=== PATIENT | female | born 1955 | race American Indian/Alaskan Native ===

== ENCOUNTER 2018-07-02 10:07 | Inpatient (IN) | payer BC, OTHER ==
--- NOTE | 2018-07-02 11:37 | C.PDOC ---
History Of Present Illness 63 year old female with a history of uterine fibroids presents to the emergency department with complaints of intermittent vertigo x 3 days. Episodes occur approximately once daily unprovoked, last approximately 1-5 minutes and self- resolve with rest. Vertigo is described as "room spinning" with associated nausea and vomiting. Patient denies nausea/vomiting when not having these episodes. Associated left ear fullness. Patient states that she has had these symptoms in the past 3 years ago, when she was diagnosed with labrynthitis. She denies fevers, chills, syncope, headache, vision changes, chest pain, SOB, abdominal pain, N/V/D, ear pain, visual changes, weakness, numbness, paresthesias, or any other associated symptoms. Time Seen by Provider: 07/02/18 11:20 Chief Complaint (Nursing): Dizziness/Lightheaded History Per: Patient History/Exam Limitations: no limitations Onset/Duration Of Symptoms: Days (3) Current Symptoms Are (Timing): Still Present Seizure Or Post-ictal Symptoms: None Fall Associated With With Symptoms: No Past Medical History Reviewed: Historical Data, Nursing Documentation, Vital Signs Vital Signs: Last Vital Signs Temp 97.6 F 07/02/18 10:16 Pulse 46 L 07/02/18 10:16 Resp 18 07/02/18 10:16 BP 137/86 07/02/18 10:16 Pulse Ox 98 07/02/18 10:16 - Medical History PMH: No Chronic Diseases Surgical History: No Surg Hx Family History: States: No Known Family Hx - Social History Hx Alcohol Use: No Hx Substance Use: Yes (marijuana) - Immunization History Hx Tetanus Toxoid Vaccination: No Hx Influenza Vaccination: No Hx Pneumococcal Vaccination: No Review Of Systems Except As Marked, All Systems Reviewed And Found Negative. Constitutional: Negative for: Fever, Chills Eyes: Negative for: Vision Change ENT: Positive for: Other (left ear fullness). Negative for: Ear Pain, Ear Discharge, Nose Congestion, Throat Pain Cardiovascular: Negative for: Chest Pain, Palpitations, Light Headedness Respiratory: Negative for: Cough, Shortness of Breath Gastrointestinal: Positive for: Nausea, Vomiting. Negative for: Abdominal Pain, Diarrhea Genitourinary: Negative for: Dysuria, Frequency, Vaginal Discharge, Vaginal Bleeding, Pelvic Pain Musculoskeletal: Negative for: Neck Pain, Back Pain Skin: Negative for: Rash Neurological: Positive for: Dizziness. Negative for: Weakness, Numbness, Seizures, Altered Mental Status, Headache Physical Exam - Physical Exam Appears: Well, Non-toxic, No Acute Distress Skin: Normal Color, Warm, Dry Head: Atraumatic, Normacephalic Eye(s): bilateral: Normal Inspection, PERRL, EOMI Ear(s): Left: Other (decreased hearing, chronic), Right: Normal, Bilateral: TM Obscured By Wax Nose: Normal Oral Mucosa: Moist Neck: Normal, Normal ROM, Supple Chest: Symmetrical, No Tenderness Cardiovascular: Rhythm Regular, No Murmur Respiratory: Normal Breath Sounds, No Rales, No Rhonchi, No Wheezing Gastrointestinal/Abdominal: Normal Exam, Bowel Sounds (normoactive), Soft, No Tenderness, No Guarding, No Rebound Back: Normal Inspection Extremity: Normal ROM, No Tenderness Extremity: Bilateral: Atraumatic, No Pedal Edema, Normal Color And Temperature, Normal ROM Pulses: Left Radial: Normal, Right Radial: Normal Neurological/Psych: Oriented x3, Normal Speech, Normal Cognition, Normal Motor, Normal Sensation, Normal Reflexes ED Course And Treatment - Laboratory Results Result Diagrams: 07/02/18 11:57 07/02/18 11:57 ECG: Viewed By Nj ECG Rhythm: Sinus Bradycardia ECG Interpretation: Normal Interpretation Of ECG: Rate 43; Sinus Bradycardia; Normal Intervals; No STEMI or other signs of acute ischemia Rate From EC O2 Sat by Pulse Oximetry: 98 (RA) Pulse Ox Interpretation: Normal - CT Scan/US CT Head Other Rad Studies (CT/US): Read By Radiologist, Radiology Report Reviewed CT/US Interpretation: IMPRESSION: No acute intracranial pathology identified. CXR Other Rad Studies (CT/US): Read By Radiologist, Radiology Report Reviewed CT/US Interpretation: IMPRESSION: No focal consolidation. Medical Decision Making Medical Decision Making: Initial Plan: * CBC, CMP * UA, culture * Troponin * Coags * Head CT * EKG * CXR * Antivert * Zofran * IVF 1130 On initial evaluation, patient very well appearing in no acute distress. Denies any somatic complaints currently. Physical exam, including neurological exam normal. Labwork shows mild hypokalemia at 3.4, PTT 41, UA with blood and ketones, otherwise unremarkable Head CT negative for any acute pathology CXR shows acute disease Patient reports feeling better after medication, continues to report intermittent dizziness. Patient persistently bradycardic at 40-50, states she has no history of low HR. Will admit for continued evaluation secondary to symptomatic bradycardia. [address] Kendall, who accepts patient for inpatient telemetry admission with diagnosis of symptomatic bradycardia and vertigo. 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 - Scribe Statement The provider has reviewed the documentation as recorded by the Scribe (Volodymyr Zamudiovi) All medical record entries made by the Scribe were at my direction and personally dictated by me. I have reviewed the chart and agree that the record accurately reflects my personal performance of the history, physical exam, medical decision making, and the department course for this patient. I have also personally directed, reviewed, and agree with the discharge instructions and disposition.
[2018-07-02] MEDS ORDERED: Sodium Chloride 0.9% 1,000 ML IV ONE (11:40)
[2018-07-02] MEDS ORDERED: Sodium Chloride 0.9% 1,000 ML ONE (12:00)
[2018-07-02 12:02] LABS: BASO % 0.5 % (0.0-2.0); EOS % 0.4 % (0.0-4.0); HEMOGLOBIN 12.8 g/dL (11.0-16.0); LYMPH # 2.2 K/uL (1.0-4.3); LYMPH % 32.6 % (20.0-40.0); MEAN CORPUSCULAR HEMOGLOBIN 25.8 pg (27.0-31.0); MEAN PLATELET VOLUME 7.5 fL (7.2-11.7); MONO # 0.4 K/uL (0.0-0.8); MONO % 5.3 % (0.0-10.0); NEUT # 4.1 K/uL (1.8-7.0); NEUT % 61.2 % (50.0-75.0); NRBC % 0.1 % (0.0-2.0); RBC 4.98 Mil/uL (3.80-5.20); RED CELL DISTRIBUTION WIDTH 16.1 % (11.5-14.5); WHITE BLOOD COUNT 6.7 K/uL (4.8-10.8)
[2018-07-02 12:05] LABS: MEAN CELL VOLUME 80.6 fL (81.0-99.0)
[2018-07-02 12:08] LABS: SQUAMOUS EPITHIAL < 1 /hpf (0-5); URINE BILIRUBIN NEGATIVE (NEGATIVE); URINE BLOOD 1+ (NEGATIVE); URINE CLARITY Clear (Clear); URINE COLOR Yellow (YELLOW); URINE GLUCOSE (UA) NORMAL (Normal); URINE LEUKOCYTE ESTERASE NEG Leu/uL (Negative); URINE PROTEIN 1+ mg/dL (NEGATIVE); URINE UROBILINOGEN NORMAL mg/dL (0.2-1.0)
[2018-07-02 12:10] LABS: INR 1.1; PROTHROMBIN TIME 12.4 SECONDS (9.7-12.2)
[2018-07-02 12:17] LABS: ALB/GLOB RATIO 1.4 (1.0-2.1); ALBUMIN 4.6 g/dL (3.5-5.0); ALT/SGPT 23 U/L (9-52); AST/SGOT 25 U/L (14-36); BLOOD UREA NITROGEN 11 mg/dL (7-17); CALCIUM 9.5 mg/dl (8.6-10.4); GFR NON-AFRICAN AMERICAN > 60
--- NOTE | 2018-07-02 12:40 | RAD ---
HISTORY: dizzy COMPARISON: Chest x-ray performed 04/24/16 TECHNIQUE: Chest, one view. FINDINGS: LUNGS: No focal consolidation. Please note that chest x-ray has limited sensitivity for the detection of pulmonary masses. PLEURA: No significant pleural effusion identified. No definite pneumothorax . CARDIOVASCULAR: Heart size appears within normal limits. Ectatic aorta. Atherosclerotic calcifications. OSSEOUS STRUCTURES: No acute osseous abnormality identified. VISUALIZED UPPER ABDOMEN: Unremarkable. OTHER FINDINGS: None. IMPRESSION: No focal consolidation.
--- NOTE | 2018-07-02 13:00 | CT ---
Date of service: 07/02/2018 PROCEDURE: CT HEAD WITHOUT CONTRAST. HISTORY: headache COMPARISON: Noncontrast head CT performed 04/24/16 TECHNIQUE: Axial computed tomography images were obtained through the head/brain without intravenous contrast. Radiation dose: Total exam DLP = 1093.03 mGy-cm. This CT exam was performed using one or more of the following dose reduction techniques: Automated exposure control, adjustment of the mA and/or kV according to patient size, and/or use of iterative reconstruction technique. FINDINGS: HEMORRHAGE: No intracranial hemorrhage. BRAIN: No mass effect or edema. Mild scattered white matter hypodensities, which are nonspecific, but often seen with chronic microvascular ischemic disease. Please note that MRI with diffusion imaging is more sensitive in the detection of acute ischemic event. VENTRICLES: No hydrocephalus. CALVARIUM: Unremarkable. PARANASAL SINUSES: Unremarkable as visualized. No significant inflammatory changes. MASTOID AIR CELLS: Unremarkable as visualized. No inflammatory changes. OTHER FINDINGS: None. IMPRESSION: No acute intracranial pathology identified.
[2018-07-02] MEDS ORDERED: Potassium Chloride 20 mEq ER Tab PO STA (13:30)
[2018-07-02] MEDS ORDERED: Potassium Chloride 20 mEq ER Tab PO ONE (13:49)
[2018-07-02 17:06] LABS: CK-MB < 0.22 ng/mL (0.0-3.38)
--- NOTE | 2018-07-02 20:23 | CP.PCM.HP ---
History of Present Illness - History of Present Illness History of Present Illness: 63 years of black female with no definite medical history in the past for the last few days is complaining of vertigo associated with nausea and 1 vomiting. Patient is also complaining of fullness in the left ear with decreased hearing. Patient stated that she had a previous history of wax In the emergency room patient had a sinus bradycardia of 45 with normal blood pressure. Patient has no previous history of cardiac or any neurological disease. Patient is a non-smoker and nonalcoholic and has not previous been hospitalized. Patient had a blood work done last year by her primary care which was reported normal Present on Admission - Present on Admission Any Indicators Present on Admission: No Review of Systems - Review of Systems All systems: reviewed and no additional remarkable complaints except (vertigo and dizziness decreased hearing left ear) Past Patient History - Past Social History Smoking Status: Light Smoker < 10 Cigarettes Daily - PSYCHIATRIC Hx Substance Use: Yes (marijuana) - SURGICAL HISTORY Hx Surgeries: Yes Other/Comment: fibroid tumor surgery Meds Allergies/Adverse Reactions: Allergies Allergy/AdvReac Type Severity Reaction Status Date / Time No Known Allergies Allergy Verified 07/02/18 10:14 Physical Exam - Head Exam Head Exam: ATRAUMATIC, NORMAL INSPECTION, NORMOCEPHALIC - Eye Exam Eye Exam: EOMI, Normal appearance, PERRL - ENT Exam ENT Exam: Mucous Membranes Moist, Normal Exam - Expanded ENT Exam Expanded TM/Canal Exam: Cerumen Impaction: Left - Neck Exam Neck exam: Positive for: Normal Inspection - Respiratory Exam Respiratory Exam: Clear to Auscultation Bilateral, NORMAL BREATHING PATTERN - Cardiovascular Exam Cardiovascular Exam: Bradycardia, +S1, +S2. absent: Systolic Murmur - GI/Abdominal Exam GI & Abdominal Exam: Normal Bowel Sounds, Soft. absent: Tenderness Results - Vital Signs Recent Vital Signs: Last Vital Signs Temp 97.6 F 07/02/18 12:45 Pulse 59 L 07/02/18 18:31 Resp 18 07/02/18 18:31 BP 137/71 07/02/18 18:31 Pulse Ox 100 07/02/18 18:31 - Labs Result Diagrams: 07/02/18 11:57 07/02/18 11:57 Labs: Laboratory Results - last 24 hr 07/02/18 07/02/18 07/02/18 11:05 11:57 11:57 WBC 6.7 RBC 4.98 Hgb 12.8 Hct 40.1 MCV 80.6 L D MCH 25.8 L MCHC 32.0 L RDW 16.1 H Plt Count 299 MPV 7.5 Neut % (Auto) 61.2 Lymph % (Auto) 32.6 [place] % (Auto) 5.3 Eos % (Auto) 0.4 Baso % (Auto) 0.5 Neut # (Auto) 4.1 Lymph # (Auto) 2.2 [place] # (Auto) 0.4 Eos # (Auto) 0.0 Baso # (Auto) 0.0 PT INR APTT Sodium Potassium Chloride Carbon Dioxide Anion Gap BUN Creatinine Est GFR ( Amer) Est GFR (Non-Af Amer) POC Glucose (mg/dL) 99 Random Glucose Calcium Total Bilirubin AST ALT Alkaline Phosphatase Total Creatine Kinase CK-MB (Mass) Troponin I Total Protein Albumin Globulin Albumin/Globulin Ratio Urine Color Yellow Urine Clarity Clear Urine pH 5.0 Ur Specific [place] 1.030 Urine Protein 1+ H Urine Glucose (UA) Normal Urine Ketones 2+ H Urine Blood 1+ H Urine Nitrate Negative Urine Bilirubin Negative Urine Urobilinogen Normal Ur Leukocyte Esterase Neg Urine WBC (Auto) < 1 Urine RBC (Auto) 5 H Ur Squamous Epith Cells < 1 07/02/18 07/02/18 07/02/18 11:57 11:57 16:24 WBC RBC Hgb Hct MCV MCH MCHC RDW Plt Count MPV Neut % (Auto) Lymph % (Auto) [place] % (Auto) Eos % (Auto) Baso % (Auto) Neut # (Auto) Lymph # (Auto) [place] # (Auto) Eos # (Auto) Baso # (Auto) PT 12.4 H INR 1.1 APTT 41 H Sodium 141 Potassium 3.4 L Chloride 103 Carbon Dioxide 28 Anion Gap 13 BUN 11 Creatinine 0.8 Est GFR ( Amer) > 60 Est GFR (Non-Af Amer) > 60 POC Glucose (mg/dL) Random Glucose 112 H D Calcium 9.5 Total Bilirubin 0.7 AST 25 ALT 23 Alkaline Phosphatase 91 Total Creatine Kinase 49 CK-MB (Mass) < 0.22 Troponin I < 0.0120 < 0.0120 Total Protein 7.9 Albumin 4.6 Globulin 3.3 Albumin/Globulin Ratio 1.4 Urine Color Urine Clarity Urine pH Ur Specific [place] Urine Protein Urine Glucose (UA) Urine Ketones Urine Blood Urine Nitrate Urine Bilirubin Urine Urobilinogen Ur Leukocyte Esterase Urine WBC (Auto) Urine RBC (Auto) Ur Squamous Epith Cells Assessment & Plan (1) Dizziness Status: Acute (2) Labyrinthitis Status: Acute (3) Bradycardia Status: Acute
[2018-07-03 00:27] LABS: CK-MB < 0.22 ng/mL (0.0-3.38)
[2018-07-03 06:55] LABS: CK-MB 0.25 ng/mL (0.0-3.38)
[2018-07-03] MEDS: Enoxaparin 40 mg Syringe SC SCH (11:00)
--- NOTE | 2018-07-03 11:58 | CP.PCM.PN ---
Subjective - Date & Time of Evaluation Date of Evaluation: 07/03/18 Time of Evaluation: 11:56 - Subjective Subjective: CHIEF COMPLAINTS TODAY : Patient has mild dizziness and vertigo Heart rate is still in the 50s with normal blood pressure ROS. HEENT : N. Resp : No cough, wheezing ,pleuritic CP ,or hemoptysis Cardio : No anginal CP, PND, orthopnea, palpitation GI : No abd.pain, n/v ,diarrhea or GI bleeding . OIL RIG ROUGHNECK : No headache, , focal deficit. Musculoskel : No joint swelling , Derm : No rash Psych : Normal affect. Ext : No swelling ,calf pain PE. Pt. is alert awake in no distress. V.S As noted in the chart Head , nose,throat and eyes : Normal. Left ear has presence of wax Neck : Supple with normal carotids. Lungs: Clear air entry. Heart : S1 & S2 normal with S4. No murmur. Abd : Soft non tender with normal bowel sounds. Neuro : Moves all ext. with no localized deficit. Ext : No edema with intact pulses.Non tender calves Derm : No rashes or decubitus ulcer. LABS/RADIOLOGY: ASSESSMENT/PLAN : Continue cardiac and neurological workup. Objective - Vital Signs/Intake and Output Vital Signs (last 24 hours): Temp Pulse Resp BP Pulse Ox 98.4 F 49 L 20 122/76 98 07/03/18 07:45 07/03/18 08:15 07/03/18 07:45 07/03/18 07:45 07/03/18 07:45 - Medications Medications: Current Medications Acetaminophen (Tylenol 325mg Tab) 650 mg PO Q6 PRN PRN Reason: Headache Last Admin: 07/03/18 11:19 Dose: 650 mg Enoxaparin Sodium (Lovenox) 40 mg SC DAILY GERALDO Last Admin: 07/03/18 11:00 Dose: 40 mg Meclizine HCl (Antivert) 25 mg PO Q8H PRN PRN Reason: Dizziness - Labs Labs: 07/02/18 11:57 07/02/18 11:57 PT 12.4 SECONDS (9.7-12.2) H 07/02/18 11:57 INR 1.1 07/02/18 11:57 APTT 41 SECONDS (21-34) H 07/02/18 11:57 Assessment and Plan (1) Dizziness Status: Acute (2) Labyrinthitis Status: Acute (3) Bradycardia Status: Acute
--- NOTE | 2018-07-03 12:01 | CARD ---
APPROVED REPORT Date of service: 07/02/2018 EKG Measurement Heart [id number] <Conclusion> Marked sinus bradycardia Abnormal ECG
[2018-07-04 07:41] LABS: BASO % 0.4 % (0.0-2.0); EOS # 0.1 K/uL (0.0-0.7); EOS % 1.6 % (0.0-4.0); HEMOGLOBIN 11.2 g/dL (11.0-16.0); LYMPH % 36.3 % (20.0-40.0); MEAN CELL VOLUME 80.6 fL (81.0-99.0); MEAN CORPUSCULAR HEMOGLOBIN 25.9 pg (27.0-31.0); MEAN CORPUSCULAR HGB CONC 32.1 g/dL (33.0-37.0); MEAN PLATELET VOLUME 7.8 fL (7.2-11.7); MONO # 0.4 K/uL (0.0-0.8); MONO % 7.6 % (0.0-10.0); NEUT % 54.1 % (50.0-75.0); NRBC % 0.1 % (0.0-2.0); RBC 4.31 Mil/uL (3.80-5.20); RED CELL DISTRIBUTION WIDTH 16.1 % (11.5-14.5); WHITE BLOOD COUNT 5.5 K/uL (4.8-10.8)
[2018-07-04 08:02] LABS: ALB/GLOB RATIO 1.3 (1.0-2.1); ALBUMIN 3.6 g/dL (3.5-5.0); ALT/SGPT 24 U/L (9-52); AST/SGOT 22 U/L (14-36); BLOOD UREA NITROGEN 10 mg/dL (7-17); CALCIUM 8.7 mg/dl (8.6-10.4); GFR NON-AFRICAN AMERICAN > 60
[2018-07-04] MEDS: Enoxaparin 40 mg Syringe SC SCH (09:52)
[2018-07-04] MEDS ORDERED: Potassium Chloride 20 mEq ER Tab PO ONE (10:00)
--- NOTE | 2018-07-04 11:56 | CP.PCM.PN ---
Subjective - Date & Time of Evaluation Date of Evaluation: 07/04/18 Time of Evaluation: 11:56 - Subjective Subjective: CHIEF COMPLAINTS TODAY : Patient has mild dizziness and vertigo Heart rate is still in the 50s with normal blood pressure ROS. HEENT : N. Resp : No cough, wheezing ,pleuritic CP ,or hemoptysis Cardio : No anginal CP, PND, orthopnea, palpitation GI : No abd.pain, n/v ,diarrhea or GI bleeding . CONICAL MIXER : No headache, , focal deficit. Musculoskel : No joint swelling , Derm : No rash Psych : Normal affect. Ext : No swelling ,calf pain PE. Pt. is alert awake in no distress. V.S As noted in the chart Head , nose,throat and eyes : Normal. Left ear has presence of wax Neck : Supple with normal carotids. Lungs: Clear air entry. Heart : S1 & S2 normal with S4. No murmur. Abd : Soft non tender with normal bowel sounds. Neuro : Moves all ext. with no localized deficit. Ext : No edema with intact pulses.Non tender calves Derm : No rashes or decubitus ulcer. LABS/RADIOLOGY: ASSESSMENT/PLAN : STRESS TEST TODAY Objective - Vital Signs/Intake and Output Vital Signs (last 24 hours): Temp Pulse Resp BP Pulse Ox 98.0 F 51 L 20 122/76 96 07/04/18 07:07 07/04/18 07:07 07/04/18 07:07 07/04/18 07:07 07/04/18 07:07 Intake and Output: 07/03/18 07/04/18 23:59 11:59 Intake Total 900 200 Balance 900 200 - Medications Medications: Current Medications Acetaminophen (Tylenol 325mg Tab) 650 mg PO Q6 PRN PRN Reason: Headache Last Admin: 07/03/18 11:19 Dose: 650 mg Enoxaparin Sodium (Lovenox) 40 mg SC DAILY GERALDO Last Admin: 07/04/18 09:52 Dose: 40 mg Meclizine HCl (Antivert) 25 mg PO Q8H PRN PRN Reason: Dizziness Last Admin: 07/04/18 09:55 Dose: 25 mg Ondansetron HCl (Zofran Inj) 4 mg IVP Q6 PRN PRN Reason: Nausea/Vomiting Last Admin: 07/04/18 10:14 Dose: 4 mg - Labs Labs: 07/04/18 07:04 07/04/18 07:04 PT 12.4 SECONDS (9.7-12.2) H 07/02/18 11:57 INR 1.1 07/02/18 11:57 APTT 41 SECONDS (21-34) H 07/02/18 11:57 Assessment and Plan (1) Dizziness Status: Acute (2) Labyrinthitis Status: Acute (3) Bradycardia Status: Acute
--- NOTE | 2018-07-04 19:24 | CP.PCM.CON ---
History of Present Illness - History of Present Illness History of Present Illness: Cardiac Electrophysiology Consult Re: bradycardia Dizziness seen examined interviewed reviewed imaging studies EKG and telemetry and labs Ms. Pat presented with dizziness with a spinning sensation 'ear fullness' and nausea She was noted to have bradycardia There was no history of diaphoresis syncope blurred vision Examination was unrevealing EKG showed sinus bradycardia with normal AV and intraventricular conduction Echo revealed normal LV systolic function Labs were unrevealing IN summary she has dizziness suggestive of a vestibular process (Cf. hemodynamically mediated) The index sinus bradycardia is likely incidental and worsened with nauses induced vagal response Would obtain a regular stress test for chronotropic competence and thyroid function and avoid sinus and AV fadi stressors A device implant would be of little utility in absence of an imperative to use beta blockers/calcium channel blockers Past Patient History - Past Social History Smoking Status: Light Smoker < 10 Cigarettes Daily - MUSCULOSKELETAL/RHEUMATOLOGICAL Hx Falls: No - PSYCHIATRIC Hx Substance Use: Yes (marijuana) - SURGICAL HISTORY Hx Surgeries: Yes Other/Comment: fibroid tumor surgery - ANESTHESIA Hx Anesthesia: Yes Hx Anesthesia Reactions: No Hx Malignant Hyperthermia: No Has any member of the family had a problem w/ anesthesia?: No Meds Allergies/Adverse Reactions: Allergies Allergy/AdvReac Type Severity Reaction Status Date / Time No Known Allergies Allergy Verified 07/02/18 10:14 - Medications Medications: Current Medications Acetaminophen (Tylenol 325mg Tab) 650 mg PO Q6 PRN PRN Reason: Headache Last Admin: 07/03/18 11:19 Dose: 650 mg Enoxaparin Sodium (Lovenox) 40 mg SC DAILY GERALDO Last Admin: 07/04/18 09:52 Dose: 40 mg Meclizine HCl (Antivert) 25 mg PO Q8H PRN PRN Reason: Dizziness Last Admin: 07/04/18 09:55 Dose: 25 mg Ondansetron HCl (Zofran Inj) 4 mg IVP Q6 PRN PRN Reason: Nausea/Vomiting Last Admin: 07/04/18 10:14 Dose: 4 mg Results - Vital Signs Recent Vital Signs: Last Vital Signs Temp 98.0 F 07/04/18 07:07 Pulse 48 L 07/04/18 17:31 Resp 20 07/04/18 07:07 BP 122/76 07/04/18 07:07 Pulse Ox 96 01/09/19 07:07 - Labs Result Diagrams: 07/05/18 13:50 07/05/18 12:23 Labs: Laboratory Results - last 24 hr 07/04/18 07/04/18 07:04 07:04 WBC 5.5 RBC 4.31 Hgb 11.2 Hct 34.8 MCV 80.6 L MCH 25.9 L MCHC 32.1 L RDW 16.1 H Plt Count 243 MPV 7.8 Neut % (Auto) 54.1 Lymph % (Auto) 36.3 [place] % (Auto) 7.6 Eos % (Auto) 1.6 Baso % (Auto) 0.4 Neut # (Auto) 3.0 Lymph # (Auto) 2.0 [place] # (Auto) 0.4 Eos # (Auto) 0.1 Baso # (Auto) 0.0 Sodium 137 Potassium 3.5 L Chloride 100 Carbon Dioxide 31 H Anion Gap 9 L BUN 10 Creatinine 0.9 Est GFR ( Amer) > 60 Est GFR (Non-Af Amer) > 60 Random Glucose 98 Calcium 8.7 Total Bilirubin 0.3 AST 22 ALT 24 Alkaline Phosphatase 74 Total Protein 6.3 Albumin 3.6 Globulin 2.7 Albumin/Globulin Ratio 1.3 TSH 3rd Generation 0.93
--- NOTE | 2018-07-05 05:20 | CARD ---
APPROVED REPORT Date of service: 07/04/2018 EXAM: Two-dimensional and M-mode echocardiogram with Doppler and color Doppler. Other Information Quality : Rhythm : Bradycardia INDICATION CAD Substance use 2D DIMENSIONS IVSd0.9 (0.7-1.1cm)Aortic Root (2D)3.4 (2.0-3.7cm) LVDd5.4 (3.9-5.9cm)PWd0.9 (0.7-1.1cm) LA Byttrr76 (18-58mL)LVDs3.7 (2.5-4.0cm) FS (%) 31.2 %LVEF (%)58.4 (>50%) LVEF (Banegas's)61.39 %IVC0.00 cm M-Mode DIMENSIONS RVDd2.58 (2.1-3.2cm)Left Atrium (MM)4.31 (2.5-4.0cm) IVSd0.70 (0.7-1.1cm)Aortic Root3.02 (2.2-3.7cm) LVDd5.57 (4.0-5.6cm)Aortic Cusp Exc.2.07 (1.5-2.0cm) PWd0.85 (0.7-1.1cm)FS (%) 30 % LVDs3.87 (2.0-3.8cm)TAPSE18.07 cm LVEF (%)57 (>50%) Mitral Valve MV E Zevjyiwh75.7cm/sMV A Eeiwokzt92.3cm/sE/A ratio1.4 TDI Lateral E' Peak V8.42cm/sMedial E' Peak V8.29cm/sE/Lateral E'7.9 E/Medial E'8.0 Tricuspid Valve TR Peak [id number]/sTR Peak Gr.[id number] LEFT VENTRICLE The left ventricle is normal size. There is normal left ventricular wall thickness. Left ventricle systolic function is normal. The Ejection Fraction is 55-60%. There is normal LV segmental wall motion. The left ventricular diastolic function is normal. RIGHT VENTRICLE The right ventricle is normal size. There is normal right ventricular wall thickness. The right ventricular systolic function is normal. ATRIA The left atrium size is normal. The right atrium size is normal. The interatrial septum is intact with no evidence for an atrial septal defect. AORTIC VALVE The aortic valve is normal in structure. No aortic regurgitation is present. There is no aortic valvular stenosis. MITRAL VALVE The mitral valve is normal in structure. There is no evidence of mitral valve prolapse. There is no mitral valve stenosis. Mitral regurgitation is mild. TRICUSPID VALVE The tricuspid valve is normal in structure. There is mild tricuspid regurgitation. Right ventricular systolic pressure is estimated at less than 30 mmHg. There is no pulmonary hypertension. PULMONIC VALVE The pulmonic valve is not well visualized. There is mild pulmonic valvular regurgitation. GREAT VESSELS The aortic root is normal in size. PERICARDIAL EFFUSION There is no significant pericardial effusion. <Conclusion> Left ventricle systolic function is normal. The Ejection Fraction is 55-60%. No aortic regurgitation is present. Mitral regurgitation is mild. There is mild tricuspid regurgitation. There is no pulmonary hypertension. There is mild pulmonic valvular regurgitation.
[2018-07-05] MEDS ORDERED: Caffeine Citrated **INJ** 20 MG/ML IV ONE (07:52)
[2018-07-05] MEDS: Enoxaparin 40 mg Syringe SC SCH (10:06)
[2018-07-05 12:56] LABS: ALB/GLOB RATIO 1.3 (1.0-2.1); ALBUMIN 3.8 g/dL (3.5-5.0); ALT/SGPT 21 U/L (9-52); AST/SGOT 39 U/L (14-36); BLOOD UREA NITROGEN 10 mg/dL (7-17); CALCIUM 9.1 mg/dl (8.6-10.4); GFR NON-AFRICAN AMERICAN > 60
--- NOTE | 2018-07-05 13:15 | VASCLAB ---
Date of service: 07/03/2018 PROCEDURE: Carotid Duplex Exam. HISTORY: tia COMPARISON: None available. TECHNIQUE: Grayscale and duplex Doppler evaluation of the cervical carotid and vertebral arteries were performed. The common carotid, carotid bifurcations and cervical Internal Carotid Artery (ICA) and proximal External Carotid Artery (ECA) were evaluated. The vertebral arteries were evaluated for gross patency and flow direction. Report prepared by Antonio Fortune, BS, RVT FINDINGS: RIGHT CAROTID ARTERIES: 1. Common Carotid Artery: No significant focal plaque formation of the right common carotid artery. Maximum Peak Systolic velocity: 76 cm/sec: End-diastolic velocity 15 cm/sec. 2. Carotid Bifurcation: plaque formation. Maximum Peak Systolic velocity: 75 cm/sec: End-diastolic velocity 16 cm/sec. 3. Internal Carotid Artery: Plaque description: 3.1. Proximal Segment: Peak systolic velocity 75 cm/sec: End-diastolic velocity 27 cm/sec - % stenosis 0-15% 3.2. Middle Segment: Peak systolic velocity 56 cm/sec: End-diastolic velocity 15 cm/sec - % stenosis 0-15% 3.3. Distal Segment: Peak systolic velocity 70 cm/sec: End-diastolic velocity 20 cm/sec - % stenosis 0-15% 4. External Carotid Artery: No significant focal plaque formation. Peak systolic velocity 75 cm/sec 5. ICA/CCA Ratio: 1.0 LEFT CAROTID ARTERIES: 1. Common Carotid Artery: No significant focal plaque formation of the left common carotid artery. Maximum Peak Systolic velocity: 74 cm/sec: End-diastolic velocity 15 cm/sec. 2. Carotid Bifurcation: plaque formation. Maximum Peak Systolic velocity: 49 cm/sec: End-diastolic velocity 12 cm/sec. 3. Internal Carotid Artery: Plaque description: 3.1. Proximal Segment: Peak systolic velocity 76 cm/sec: End-diastolic velocity 24 cm/sec - % stenosis 0-15% 3.2. Middle Segment: Peak systolic velocity 60 cm/sec: End-diastolic velocity 21 cm/sec - % stenosis 0-15% 3.3. Distal Segment: Peak systolic velocity 68 cm/sec: End-diastolic velocity 22 cm/sec - % stenosis 0-15% 4. External Carotid Artery: No significant focal plaque formation. Peak systolic velocity 85 cm/sec 5. ICA/CCA Ratio: 1.0 VERTEBRAL ARTERIES: 1. Right Vertebral Artery: The right vertebral artery flow direction is antegrade. 2. Left Vertebral Artery: The left vertebral artery flow direction is antegrade. OTHER FINDINGS: 1. Right Brachial Blood pressure: 120 mmHg. 2. Left Brachial Blood pressure: 114 mmHg. 3. No atherosclerotic calcification present IMPRESSION: RIGHT: Duplex scan does not suggest hemodynamically significant stenosis of the right extracranial carotid arteries. LEFT: Duplex scan does not suggest hemodynamically significant stenosis of the left extracranial carotid arteries.
[2018-07-05 14:01] LABS: BASO % 0.3 % (0.0-2.0); EOS # 0.1 K/uL (0.0-0.7); EOS % 1.6 % (0.0-4.0); HEMOGLOBIN 11.8 g/dL (11.0-16.0); LYMPH # 2.9 K/uL (1.0-4.3); LYMPH % 47.4 % (20.0-40.0); MEAN CELL VOLUME 79.9 fL (81.0-99.0); MEAN CORPUSCULAR HEMOGLOBIN 25.8 pg (27.0-31.0); MEAN CORPUSCULAR HGB CONC 32.3 g/dL (33.0-37.0); MEAN PLATELET VOLUME 7.9 fL (7.2-11.7); MONO # 0.4 K/uL (0.0-0.8); MONO % 6.3 % (0.0-10.0); NEUT # 2.7 K/uL (1.8-7.0); NEUT % 44.4 % (50.0-75.0); RBC 4.56 Mil/uL (3.80-5.20); RED CELL DISTRIBUTION WIDTH 16.1 % (11.5-14.5); WHITE BLOOD COUNT 6.1 K/uL (4.8-10.8)
--- NOTE | 2018-07-05 14:22 | CP.PCM.PN ---
Subjective - Date & Time of Evaluation Date of Evaluation: 07/05/18 Time of Evaluation: 14:22 - Subjective Subjective: Patient is still complaining of vertigo No chest pain shortness of breath Sinus bradycardia continues with normal blood pressure We will attempt a stress test today Echo normal EP consult noted Objective - Vital Signs/Intake and Output Vital Signs (last 24 hours): Temp Pulse Resp BP Pulse Ox 97.9 F 49 L 20 127/77 94 L 07/05/18 08:15 07/05/18 08:15 07/05/18 08:15 07/05/18 08:15 07/05/18 08:15 Intake and Output: 07/05/18 07/05/18 11:59 23:59 Intake Total 120 Balance 120 - Medications Medications: Current Medications Acetaminophen (Tylenol 325mg Tab) 650 mg PO Q6 PRN PRN Reason: Headache Last Admin: 07/03/18 11:19 Dose: 650 mg Enoxaparin Sodium (Lovenox) 40 mg SC DAILY GERALDO Last Admin: 07/05/18 10:06 Dose: 40 mg Meclizine HCl (Antivert) 25 mg PO Q8H PRN PRN Reason: Dizziness Last Admin: 07/04/18 09:55 Dose: 25 mg Ondansetron HCl (Zofran Inj) 4 mg IVP Q6 PRN PRN Reason: Nausea/Vomiting Last Admin: 07/04/18 10:14 Dose: 4 mg - Labs Labs: 07/05/18 13:50 07/05/18 12:23 PT 12.4 SECONDS (9.7-12.2) H 07/02/18 11:57 INR 1.1 07/02/18 11:57 APTT 41 SECONDS (21-34) H 07/02/18 11:57 Assessment and Plan (1) Dizziness Status: Acute (2) Labyrinthitis Status: Acute (3) Bradycardia Status: Acute
[2018-07-05] MEDS ORDERED: Potassium Chloride 20 mEq ER Tab PO ONE ×2 (16:00→18:30)
--- NOTE | 2018-07-05 23:18 | CON ---
DATE: 07/05/2018 REQUESTING PHYSICIAN: Dr. Kendall. REASON FOR CONSULTATION: Dizziness. HISTORY OF PRESENT ILLNESS: This is a 63-year-old female with a 5-day history of dizziness which comes and goes. It is moderate to severe in intensity and sometimes has vertigo and sometimes does not. There is also hearing loss in the left ear, constant, moderate for many years. There is no change in hearing or ringing when the patient is dizzy. PAST MEDICAL HISTORY: As noted in the chart by me. MEDICATIONS: As noted in the chart by me. REVIEW OF SYSTEMS: As noted in the chart by me. ALLERGIES: NOTED IN THE CHART BY ME. PHYSICAL EXAMINATION: HEAD: Atraumatic, normocephalic. FACE: Good facial movements bilaterally. CONSTITUTIONAL: Well fed, well nourished. COMMUNICATION: Communicates well and appropriately. EXTERNAL NOSE AND EARS: No masses. No lesions. No erythema. No edema. INTERNAL NOSE: Deviated septum. No masses. No lesions. No erythema. No edema. EARS: Wax found in both ear canals. TM cannot be visualized. ORAL CAVITY AND OROPHARYNX: No masses. No lesions. No erythema. No edema. LIPS AND GUMS: No masses. No lesions. No erythema. No edema. NECK: Supple. THYROID: No thyromegaly. No goiter. LYMPH NODES: No lymphadenopathy of the neck. ASSESSMENT: 1. Dizziness. 2. Ear wax. 3. Hearing loss. 4. Deviated septum. PLAN: The patient should have an MRI of the head with gadolinium. If MRI is normal, the patient can follow up as an outpatient to the office to have the ear screen, then be sent for a VNG. If MRI could be done as an outpatient, that is fine also. Clay Kan MD [facility]
[2018-07-06 01:32] VITALS: RESP 20
[2018-07-06 08:16] VITALS: BP 124/80; TEMP 97.6; O2SAT 99
[2018-07-06 08:39] VITALS: PULSE 42
[2018-07-06] MEDS: Enoxaparin 40 mg Syringe SC SCH (09:22)
--- NOTE | 2018-07-06 10:10 | CARD ---
APPROVED REPORT Date of service: 07/05/2018 Protocol: LEXISCAN Test Type: LEXISCAN STRESS Test Indications: SYMPTOMATIC ONI VERTIGO Target HR: 158 bpm Resting Heart Rate: 46 bpm Resting Blood Pressure: 126/80mmHg submaximum (85%): 134 bpm TEST SUMMARY [id number]:01..1.048/.0. PREINFSNHYPERV.00:360.00.01.773660/80.0. INFUSIONDOSE 100:300.00.01.212332/80.0. QAMEAAGYO55:060.00.01.966257/80.0. PROCEDURE Pharmacologic stress testing was performed using 0.4mg per 5ml of regadenoson given intravenously over 7-10 seconds. POST EXERCISE Target HR: No Max HR: 45 bpm 52% of Maximum Predicted HR: 158 bpm Exercise duration: 00:30 min:sec, 0 Stage Exercise capacity: 1.0METs Max Blood Pressure: 128/80mmHg Chest Pain: Yes, Angina index: 0 Arrhythmia: Yes, ST Change: Yes, Deviation: 0 mm EXAM: Myocardial Perfusion REST/STRESS Imaging Protocol The imaging protocol used to acquire images was Rest Tc-99m/stress Tc-99m 2 days Rest Spect myocardial perfusion imaging was performed in supine position 45 minutes following the injection of 12.4 mCi of Tc-99 Myoview. Gated Stress Spect was performed 55 minutes after intravenous 32.4 mci Tc-99 Myoview injection. The images were gated to evaluate regional wall motion and calculate ventricular ejection fraction.Images were reconstructed using backfilter projection method in short horizontal and verticle long axis. Spect slices were generated. RESTING DATA EOY423.89hfAK6.20L/min ESV60.00mlMyocardial Vpdk015.00g Av. Heart Rate41.00bpm EF56.00% STRESS DATA QHY368.37aoVO8.40L/min ESV40.00mlMyocardial Mizs879.00g EF71.00% Regional WT score at stress:0.00 Regional WM score at stress:0.00 Summed WT score at stress:0.00 Av. Heart Rate55.00bpmSummed WM score at stress:0.00 LV Perf. Quant 17 Seg. SSS2.00 17 Seg. SRS4.00 17 Seg. SDS0.00 Stress Defect Extent (% LAD)0.00Rest Defect Extent (% LAD)0.00Rev. Defect Extent (% LAD)0.00 Stress Defect Extent (% LCX)26.30Rest Defect Extent (% LCX)32.50Rev. Defect Extent (% LCX)0.00 Stress Defect Extent (% RCA)0.00Rest Defect Extent (% RCA)0.00Rev. Defect Extent (% RCA)0.00 Stress Defect Extent (% BJ)5.40Rest Defect Extent (% BJ)7.00Rev. Defect Extent (% BJ)0.00 Conclusion 1. Abnormal fixed defect at rest and on peak injection suggest an artifact(breast shadow) 2. Normal LV EF at 71% with no wall motion abnormality
--- NOTE | 2018-07-06 11:16 | CP.PCM.DIS ---
Provider - Provider Date of Admission: 07/02/18 15:32 Attending physician: Louise Kendall MD Consults: 07/04/18 13:19 Cardiology Consult Routine Comment: Consulting Provider: Eduardo Kwan Consulting Physician: Eduardo Kwan Reason for Consult: bradycardia Physician Consult Routine Comment: Consulting Provider: Clay Kan Consulting Physician: Clay Kan Reason for Consult: dizziness, ear fullness Time Spent in preparation of Discharge (in minutes): 35 Diagnosis - Discharge Diagnosis (1) Dizziness Status: Acute (2) Labyrinthitis Status: Acute (3) Bradycardia Status: Acute Hospital Course - Lab Results Lab Results: Most Recent Lab Values WBC 6.1 K/uL (4.8-10.8) 07/05/18 13:50 RBC 4.56 Mil/uL (3.80-5.20) 07/05/18 13:50 Hgb 11.8 g/dL (11.0-16.0) 07/05/18 13:50 Hct 36.5 % (34.0-47.0) 07/05/18 13:50 MCV 79.9 fL (81.0-99.0) L 07/05/18 13:50 MCH 25.8 pg (27.0-31.0) L 07/05/18 13:50 MCHC 32.3 g/dL (33.0-37.0) L 07/05/18 13:50 RDW 16.1 % (11.5-14.5) H 07/05/18 13:50 Plt Count 269 K/uL (130-400) 07/05/18 13:50 MPV 7.9 fL (7.2-11.7) 07/05/18 13:50 Neut % (Auto) 44.4 % (50.0-75.0) L 07/05/18 13:50 Lymph % (Auto) 47.4 % (20.0-40.0) H 07/05/18 13:50 Rhea % (Auto) 6.3 % (0.0-10.0) 07/05/18 13:50 Eos % (Auto) 1.6 % (0.0-4.0) 07/05/18 13:50 Baso % (Auto) 0.3 % (0.0-2.0) 07/05/18 13:50 Neut # (Auto) 2.7 K/uL (1.8-7.0) 07/05/18 13:50 Lymph # (Auto) 2.9 K/uL (1.0-4.3) 07/05/18 13:50 Rhea # (Auto) 0.4 K/uL (0.0-0.8) 07/05/18 13:50 Eos # (Auto) 0.1 K/uL (0.0-0.7) 07/05/18 13:50 Baso # (Auto) 0.0 K/uL (0.0-0.2) 07/05/18 13:50 PT 12.4 SECONDS (9.7-12.2) H 07/02/18 11:57 INR 1.1 07/02/18 11:57 APTT 41 SECONDS (21-34) H 07/02/18 11:57 Sodium 137 mmol/L (132-148) 07/05/18 12:23 Potassium 3.3 mmol/L (3.6-5.2) L 07/05/18 12:23 Chloride 102 mmol/L (98-107) 07/05/18 12:23 Carbon Dioxide 28 mmol/L (22-30) 07/05/18 12:23 Anion Gap 10 (10-20) 07/05/18 12:23 BUN 10 mg/dL (7-17) 07/05/18 12:23 Creatinine 0.7 mg/dL (0.7-1.2) 07/05/18 12:23 Est GFR ( Amer) > 60 07/05/18 12:23 Est GFR (Non-Af Amer) > 60 07/05/18 12:23 POC Glucose (mg/dL) 99 mg/dL (65-110) 07/02/18 11:05 Random Glucose 163 mg/dL (65-105) H D 07/05/18 12:23 Calcium 9.1 mg/dl (8.6-10.4) 07/05/18 12:23 Total Bilirubin 0.5 mg/dL (0.2-1.3) 07/05/18 12:23 AST 39 U/L (14-36) H D 07/05/18 12:23 ALT 21 U/L (9-52) 07/05/18 12:23 Alkaline Phosphatase 78 U/L (38-126) 07/05/18 12:23 Total Creatine Kinase 52 U/L (30-135) 07/03/18 06:18 CK-MB (Mass) 0.25 ng/mL (0.0-3.38) 07/03/18 06:18 Troponin I < 0.0120 ng/mL (0.00-0.120) 07/03/18 06:18 Total Protein 6.6 g/dL (6.3-8.3) 07/05/18 12:23 Albumin 3.8 g/dL (3.5-5.0) 07/05/18 12:23 Globulin 2.8 gm/dL (2.2-3.9) 07/05/18 12:23 Albumin/Globulin Ratio 1.3 (1.0-2.1) 07/05/18 12:23 TSH 3rd Generation 0.93 mIU/L (0.46-4.68) 07/04/18 07:04 Urine Color Yellow (YELLOW) 07/02/18 11:57 Urine Clarity Clear (Clear) 07/02/18 11:57 Urine pH 5.0 (5.0-8.0) 07/02/18 11:57 Ur Specific [place] 1.030 (1.003-1.030) 07/02/18 11:57 Urine Protein 1+ mg/dL (NEGATIVE) H 07/02/18 11:57 Urine Glucose (UA) Normal mg/dL (Normal) 07/02/18 11:57 Urine Ketones 2+ mg/dL (NEGATIVE) H 07/02/18 11:57 Urine Blood 1+ (NEGATIVE) H 07/02/18 11:57 Urine Nitrate Negative (NEGATIVE) 07/02/18 11:57 Urine Bilirubin Negative (NEGATIVE) 07/02/18 11:57 Urine Urobilinogen Normal mg/dL (0.2-1.0) 07/02/18 11:57 Ur Leukocyte Esterase Neg Noam/uL (Negative) 07/02/18 11:57 Urine WBC (Auto) < 1 /hpf (0-5) 07/02/18 11:57 Urine RBC (Auto) 5 /hpf (0-3) H 07/02/18 11:57 Ur Squamous Epith Cells < 1 /hpf (0-5) 07/02/18 11:57 - Hospital Course Hospital Course: 63 years of black female with no definite medical history in the past for the last few days is complaining of vertigo associated with nausea and 1 vomiting. Patient is also complaining of fullness in the left ear with decreased hearing. Patient stated that she had a previous history of wax In the emergency room patient had a sinus bradycardia of 45 with normal blood pressure. Patient has no previous history of cardiac or any neurological disease. Patient is a non-smoker and nonalcoholic and has not previous been hospitalized. Patient had a blood work done last year by her primary care which was reported normal During the hospitalization patient continued to have vertigo. ENT consult was obtained. Patient was advised to follow with the office for removal of wax. Patient continued to have sinus bradycardia. Electrophysiology consult was obtained and advised no pacemaker. Patient underwent IV Lexiscan Myoview. Her heart rate increased to 82 during the peak injection left ventricle ejection fraction was 71% and the artifact fixed defects. Currently patient is stable will discharge the patient home and follow outpatient. Discharge Exam - Head Exam Head Exam: ATRAUMATIC, NORMAL INSPECTION, NORMOCEPHALIC Discharge Plan - Follow Up Plan Condition: STABLE Disposition: HOME/ ROUTINE Instructions: Vertigo (a Type of Dizziness) (DC), Bradycardia (DC) Referrals: Louise Kendall MD [Staff Provider] -
[2018-07-06] MEDS ORDERED: Potassium Chloride 20 mEq ER Tab PO ONE (15:00)
--- NOTE | 2018-07-06 16:40 | CP.PCM.PN ---
Subjective - Date & Time of Evaluation Date of Evaluation: 07/06/18 Time of Evaluation: 16:39 Objective - Vital Signs/Intake and Output Vital Signs (last 24 hours): Temp Pulse Resp BP Pulse Ox 97.6 F 42 L 20 124/80 99 07/06/18 07:00 07/06/18 07:22 07/06/18 07:00 07/06/18 07:00 07/06/18 07:00 Intake and Output: 07/06/18 07/06/18 06:59 18:59 Intake Total 250 Balance 250 - Medications Medications: Current Medications Acetaminophen (Tylenol 325mg Tab) 650 mg PO Q6 PRN PRN Reason: Headache Last Admin: 07/03/18 11:19 Dose: 650 mg Enoxaparin Sodium (Lovenox) 40 mg SC DAILY GERALDO Last Admin: 07/06/18 09:22 Dose: 40 mg Meclizine HCl (Antivert) 25 mg PO Q8H PRN PRN Reason: Dizziness Last Admin: 07/04/18 09:55 Dose: 25 mg Ondansetron HCl (Zofran Inj) 4 mg IVP Q6 PRN PRN Reason: Nausea/Vomiting Last Admin: 07/04/18 10:14 Dose: 4 mg - Labs Labs: 07/05/18 13:50 07/05/18 12:23 PT 12.4 SECONDS (9.7-12.2) H 07/02/18 11:57 INR 1.1 07/02/18 11:57 APTT 41 SECONDS (21-34) H 07/02/18 11:57 Assessment and Plan - Assessment and Plan (Free Text) Assessment: FOLLOW UP WITH DR DUNAWAY IN HIS OFFICE -----CALL FOR APPOINTMENT FOLLOW UP WITH DR STEPHENSON IN HIS OFFICE -----CALL FOR APPOINTMENT ADDRESS MRI OF THE HEAD WITH GADOLINIUM AT YOUR VISIT ACTIVITY TOLERATED CALL DR DUNAWAY OR GO TO THE EMERGENCY ROOM IF SYMPTOM RETURN OR WORSENING
--- NOTE | 2018-07-07 10:27 | CARD ---
APPROVED REPORT Date of service: 07/03/2018 EKG Measurement Heart [id number] OR 190P50 [id number] <Conclusion> Sinus bradycardia Otherwise normal ECG
--- NOTE | 2018-07-08 19:02 | EEG ---
DATE: 07/03/2018 REQUESTING PHYSICIAN: Leeroy Park MD REASON FOR THE STUDY: Vertigo. MEDICATIONS: Aspirin, Antivert and Zofran. TECHNIQUE: Routine electroencephalogram performed with [employer]. Electrodes were applied according to 10-20 [employer] Placement System. Impedances were less than 5 kilo ohms. EEG start 9:52 a.m. EEG end 10:15 a.m. Total recording time is 23 minutes. FINDINGS: During the awake state, the background activity showed an average frequency of 10 Hz in the posterior head regions, normally reactive to eye opening and eye closure. In the anterior head region frequency were in the better range. The EEG was properly organized. Drowsiness was seen briefly at 10:11 a.m. and characterized by breakdown of posterior dominant rhythm. Sleep was not seen. Hyperventilation was not performed. Photic stimulation was performed, and there were no changes in the record. IMPRESSION: This is a normal awake and drowsy electroencephalogram. Eugene Chaparro MD [facility]
== END 2018-07-06 17:17 | disposition home or self-care (01) | DRG 149 ==
LOC: C.ER 10:07 → C.9E 15:32 → C.5S 23:58
PROVIDERS: ADMIT Internal Medicine Cardiovascular Disease; ATTEND Internal Medicine Cardiovascular Disease
DX: H83.09 Labyrinthitis, unspecified ear (principal); F12.90 Cannabis use, unspecified, uncomplicated; J34.2 Deviated nasal septum; H91.92 Unspecified hearing loss, left ear; R00.1 Bradycardia, unspecified